=== PATIENT | male | born 2000 | race Caucasian/White ===

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

== ENCOUNTER 2020-06-12 09:43 | Emergency (ER) | payer OTHER ==
[~2020-06-12] VITALS: Ht 188 cm; Wt 104.3 kg
[~2020-06-12 09:43] MED LIST changes: +AMOX TR-K CLV1 EAC4 PO; +DEXAMETHASONE2 MG PO
[2020-06-12] MEDS ORDERED: HYDROCODON-ACE1 EAC7 PO (11:24)
[2020-06-12 12:01] VITALS: BP 142/87
== END 2020-06-12 12:04 | disposition home or self-care (01) ==
LOC: M.ERS 09:43
DX: S52.134A Nondisplaced fracture of neck of right radius, initial encounter for closed fracture (principal); V00.841A Fall from standing electric scooter, initial encounter; Y93.89 Activity, other specified; Y92.89 Other specified places as the place of occurrence of the external cause; Y99.8 Other external cause status